=== PATIENT | male | born 1965 | race Caucasian/White ===

== ENCOUNTER → 2024-06-03 08:38 | Outpatient (REF) | payer BC, SELFPAY | LOC: RAD 08:38 | PROVIDERS: ATTENDING PHYSICIAN Student in an Organized Health Care Education/Training Program | DX: R19.04 Left lower quadrant abdominal swelling, mass and lump (principal); K59.00 Constipation, unspecified | CPT/HCPCS: 74019 ==

== ENCOUNTER 2024-06-09 06:24 | Day surgery (SDC) | payer BC, SELFPAY | END 2024-06-09 11:39 | disposition home or self-care (01) | LOC: GI 06:24 | PROVIDERS: ATTENDING PHYSICIAN Student in an Organized Health Care Education/Training Program | DX: K59.00 Constipation, unspecified (principal); K64.0 First degree hemorrhoids; K57.30 Diverticulosis of large intestine without perforation or abscess without bleeding; K44.9 Diaphragmatic hernia without obstruction or gangrene; K29.60 Other gastritis without bleeding; R19.5 Other fecal abnormalities; R10.12 Left upper quadrant pain; K29.50 Unspecified chronic gastritis without bleeding; K63.9 Disease of intestine, unspecified | CPT/HCPCS: 43239; 45378; 88305; 88342 ==